=== PATIENT | female | born 1960 | race Caucasian/White ===

== ENCOUNTER → 2020-09-18 | Day surgery (SDC) | payer BC ==
[~2020-09-18] MED LIST: AMBIEN10 MG PO; FENTANYL CITRATE/PF 100MCG/2 ML INJ ONE; LEVOTHYROXINE50 MCG PO; MIDAZOLAM HCL 2 MG/2 ML VIAL ONE; PREOP PHACO EYE KIT ONE
[2020-09-18 13:10] VITALS: BP 128/66
== END | disposition home or self-care (01) ==
LOC: OR 10:55
PROVIDERS: ATTEND Ophthalmology
DX: H25.11 Age-related nuclear cataract, right eye (principal); Z88.2 Allergy status to sulfonamides; Z01.810 Encounter for preprocedural cardiovascular examination; Z01.812 Encounter for preprocedural laboratory examination; Z20.822 Contact with and (suspected) exposure to COVID-19
CPT/HCPCS: 66984; 93005; J2250; J3010; U0002

== ENCOUNTER → 2020-09-25 | Day surgery (SDC) | payer BC ==
[~2020-09-25] MED LIST changes: -FENTANYL CITRATE/PF 100MCG/2 ML INJ ONE; -MIDAZOLAM HCL 2 MG/2 ML VIAL ONE; +OR PHACO EYE KIT ONE
[2020-09-25 13:15] VITALS: BP 119/86
== END | disposition home or self-care (01) ==
LOC: OR 11:18
PROVIDERS: ATTEND Ophthalmology
DX: H25.12 Age-related nuclear cataract, left eye (principal); E03.9 Hypothyroidism, unspecified; Z88.2 Allergy status to sulfonamides

== ENCOUNTER 2021-11-17 18:59 | Emergency (ER) | payer BC ==
[~2021-11-17] VITALS: Ht 165.1 cm; Wt 64.9 kg
[~2021-11-17 18:59] MED LIST changes: -OR PHACO EYE KIT ONE; -PREOP PHACO EYE KIT ONE
[2021-11-17] MEDS ORDERED: BEBTELOVIMAB 175 MG INJ IV ONE (19:15)
[2021-11-17 20:38] VITALS: BP 134/76
== END 2021-11-17 20:39 | disposition home or self-care (01) ==
LOC: ER 19:12
DX: U07.1 COVID-19 (principal); R05.9 Cough, unspecified; R51.9 Headache, unspecified
CPT/HCPCS: 99283

== ENCOUNTER → 2025-02-08 | Day surgery (SDC) | payer MEDICARE, BC ==
[~2025-02-08] MED LIST changes: +GLUCAGON FOR INJ 1 MG VIAL ONE; +LIDOCAINE HCL 2% LOCAL INJ 5 ML SDV VIAL INJ ONE; +MIDAZOLAM HCL 2 MG/2 ML VIAL ONE; +PROPOFOL IV EMULSION 50 ML IV ONE; +[UNRECOGNIZED DRUG - OTHER] PO
[2025-02-08 09:35] LABS: BASOPHILS % 0.6 % (0.0-1.0); EOSINOPHILS % 0.6 % (0.0-6.0); LYMPHOCYTES % 29.3 % (18.0-39.1); MONOCYTES % 5.7 % (4.4-11.3); NEUTROPHILS % 63.7 % (38.7-80.0); RED CELL DISTRIBUTION WIDTH 13.1 % (11.7-14.4)
[2025-02-08] MEDS: LACTATED RINGER'S 1,000 ML ONE (10:03)
[2025-02-08 10:51] VITALS: TEMP 97
[2025-02-08 11:10] VITALS: BP 122/88; PULSE 76; RESP 18; O2SAT 99
== END | disposition home or self-care (01) ==
LOC: OR 08:04
PROVIDERS: ATTEND Internal Medicine Gastroenterology
DX: Z12.11 Encounter for screening for malignant neoplasm of colon (principal); D12.4 Benign neoplasm of descending colon; K29.50 Unspecified chronic gastritis without bleeding; K31.A11 Gastric intestinal metaplasia without dysplasia, involving the antrum; K63.89 Other specified diseases of intestine; K57.30 Diverticulosis of large intestine without perforation or abscess without bleeding; K44.9 Diaphragmatic hernia without obstruction or gangrene; K64.8 Other hemorrhoids; Z88.2 Allergy status to sulfonamides; Z79.899 Other long term (current) drug therapy
CPT/HCPCS: 36415; 43239; 45380; 45384; 85025; 88305; 88342; 93005; J1610; J2003; J2250; J2704; J7121; 45378